=== PATIENT | female | born 1980 | race African-American/Black ===

== ENCOUNTER 2017-12-31 05:20 | Day surgery (SDC) | payer OTHER ==
[2017-12-29 13:40] VITALS: BMI 35.7
--- NOTE | 2017-12-31 08:00 | HP ---
History & Physical Update - History History: No Change - Physical Physical: No Change - Assessment Assessment: No Change - Plan Plan: No Change (No change from HP done by myself on )
[2017-12-31] MEDS ORDERED: oxyCODONE HCL 5 MG TABLET PO PRN ×2 (08:02→10:23)
[2017-12-31] MEDS ORDERED: IBUPROFEN 400 MG TABLET (FP) PO PRN (08:02)
[2017-12-31] MEDS ORDERED: ACETAMINOPHEN 325 MG TABLET (FP) PO PRN (08:02)
[2017-12-31] MEDS ORDERED: MIDAZOLAM HCL 2 MG/2 ML SINGLE DOSE VIAL ONE (08:08)
[2017-12-31] MEDS ORDERED: ONDANSETRON 4 MG/2 ML VIAL IVPUSH PRN (10:23)
[2017-12-31] MEDS ORDERED: LACTATED RINGERS SOLUTION 1,000 ML IV SCH (10:30)
[2017-12-31 11:30] VITALS: TEMP 98.1
[2017-12-31 11:46] VITALS: BP 118/67; PULSE 77
--- NOTE | 2017-12-31 13:02 | OP ---
Operative Note - Note: Operative Date: 12/31/17 Pre-Operative Diagnosis: Embedded IUD. Abdominal pain Operation: Hysteroscopic IUD removal. Suction DC Findings: IUD embedded Post-Operative Diagnosis: Same as Pre-op Surgeon: Denise Ponce Anesthesia: General Estimated Blood Loss (mls): 10 Operative Report Dictated: Yes
--- NOTE | 2018-01-04 08:57 | PATH ---
Surgical Pathology Report Patient Name: EDUARD EGAN Med. Rec. #: [id number] /Age/Gender: 1980 (Age: 37) / F Account: [id number] Location: [facility] Taken: 12/31/2017 Received: 12/31/2017 Reported: 01/04/2018 Physicians: Denise Ponce M.D. Specimen(s) Received A: REMOVAL OF IUD B: CONTENTS OF UTERUS Clinical History Embedded IUD Final Diagnosis A. FUNDRAISER, UTERINE CAVITY, REMOVAL: IUD (GROSS ONLY). B. UTERUS, CURETTINGS: ENDOMETRIUM WITH CHRONIC ENDOMETRITIS, ALONG WITH DECIDUALIZED TISSUE AND PORTIONS OF MYOMETRIUM. AREAS OF ADENOMYOSIS ARE PRESENT. Electronically Signed Neftaly Willoughby M.D. Gross Description A. Received fresh labeled "removed IUD" is a white T-shaped device consistent with IUD measuring 3 cm in length with a 0.2 cm diameter. For gross examination only. B. Received fresh labeled "contents of uterus" are multiple fragments of red-chance hemorrhagic soft tissue admixed with blood clot measuring 4 x 4 x 1 cm. The Entire specimen submitted in 4 cassettes. EBONI/12/31/2017 samy/12/31/2017
--- NOTE | 2018-01-04 22:41 | OP ---
DATE OF OPERATION: 12/31/2017 PREOPERATIVE DIAGNOSES: Embedded intrauterine device, abdominal pain. OPERATION: Hysteroscopic intrauterine device removal and suction dilatation and curettage. POSTOPERATIVE DIAGNOSES: Embedded intrauterine device, abdominal pain. SURGEON: Denise Ponce MD ANESTHESIA: General. ESTIMATED BLOOD LOSS: 10 mL PROCEDURE: Patient was taken to the operating room, placed in dorsal lithotomy position, prepped and draped in usual sterile fashion. Timeout was performed in accordance with hospital regulation. Speculum was placed in the vagina. Anterior lip of the cervix grasped with single-tooth tenaculum. Cervix was then dilated to accommodate the hysteroscope. IUD was then seen and found embedded, and hysteroscopic removal of IUD was done. Suction D&C was then performed due to endometritis. All contents were submitted to Pathology. Patient had tolerated the procedure well. All instruments were then removed. Estimated blood loss: 10 mL. DENISE PONCE M.D. JULIANNE/[id number]
== END 2017-12-31 12:15 | disposition home or self-care (01) ==
LOC: JASU-SURG 05:20
PROVIDERS: ATTEND Obstetrics & Gynecology
PROC: 0UDB7ZZ Extraction of Endometrium, Via Natural or Artificial Opening (ICD-10-PCS; principal; 2017-12-31 09:00)
PROC: 0UJD8ZZ Inspection of Uterus and Cervix, Via Natural or Artificial Opening Endoscopic (ICD-10-PCS; 2017-12-31 09:00)
DX: T83.89XA Other specified complication of genitourinary prosthetic devices, implants and grafts, initial encounter (principal); Z30.432 Encounter for removal of intrauterine contraceptive device
CPT/HCPCS: 86850; 86900; 86901; 88300-TC; 88305-TC; 94760